=== PATIENT | female | born 1975 | race African-American/Black ===

== ENCOUNTER 2017-07-20 19:56 | Emergency (ER) | payer OTHER ==
[2017-07-20 20:13] VITALS: BMI 28.5
[2017-07-20] MEDS ORDERED: CATAPRES TAB 0.2 MG PO ONE (20:29)
[2017-07-20] MEDS ORDERED: CATAPRES TAB 0.2 MG ONE (20:29)
--- NOTE | 2017-07-20 20:36 | DR.GENAD ---
HPI - PCP Primary Care Physician: FRANCHESKA RODARTE - Complaint/Symptoms Chief Complaint:: MIGRAINE SEVERAL DAYS WITH DIZZYNESS BACK PAIN STARTED TODAY Self Treatment fo Chief Complaint: BUTORPHANOL NOSE SPRAY. FIORICET - Source History Provided: Patient - Mode of Arrival Mode of Arrival: Ambulatory - Timing Onset of Chief Complaint: 07/17/17 PMH - PMH Past Medical History: Yes Past Medical History: Anemia, Anxiety, Asthma, Depression, Migraines, Headaches , Hypertension Past Medical History Comment: BIPOLAR Past Surgical History: Yes Surgical History: COMB FIXER Surgery Past Surgical History Comment: TUBAL LIGATION - Family History History of Family Medical Conditions: Yes Family Medical History: Hypertension - Social History Does patient currently use any type of tobacco product: No Have you used tobacco products in the last 12 months: No Type of Tobacco Use: None Alcohol Use: None Do you use any recreational Drugs:: No Lives With: Family Lives Where: Home - infectious screening In the last 2 months have you had wt loss of >10#?: NO Have you had fever, night sweats or hemotysis?: No Have you traveled outside the country in the last 6 months?: No Isolation: Standard ROS - Review of Systems Eyes: No Symptoms Reported ENTM: No Symptoms Reported Respiratoy: No Symptoms Reported Cardiovascular: No Symptoms Reported Gastrointestinal/Abdominal: No Symptoms Reported Genitourinary: No Symptoms Reported Neurological: No Symptoms Reported Musculoskeletal: No Symptoms Reported Integumentary: No Symptoms Reported Hematologic/Lymphatic: No Symptoms Reported Endocrine: No Symptoms Reported Psychiatric: No Symptoms Reported All Other Systems: Reviewed and Negative PE - Vital Signs Vitals: Temperature 99.2 F Pulse Rate 112 Respiratory Rate 20 Blood Pressure [Left Arm] 137/80 Blood Pressure 226/120 O2 Sat by Pulse Oximetry 100 - General Limitations: No Limitations General Appearance: Alert, In No Apparent Distress - Head Head Exam: Normal Inspection, Atraumatic - Eyes Eye exam: Normal Appearance, PERRL, EOMI - ENT ENT Exam: Normal Exam External Ear Exam: Normal External Inspection TM/Canal Exam: Bilateral Normal Nose Exam: Normal Nose Exam, Sinus Tenderness Mouth Exam: Normal Inspection Throat Exam: Normal Inspection - Neck Neck Exam: Normal Inspection - Chest Chest Inspection: Normal Inspection, Symmetric Chest Wall Rise - Respiratory Respiratory Exam: Normal Lung Sounds Bilat Respiratory Exam: Bilateral Clear to Auscultation - Cardiovascular Cardiovascular Exam: Regular Rate, Normal Rhythm - Abdominal Exam Abdominal Exam: Normal Inspection, Normal Bowel Sounds, Distention Abdominal Tenderness: negative: RUQ, RLQ, LUQ, LLQ, Epigastrium, Suprapubic, Diffuse, Mild, Moderate, Severe, Other - Extremities Extremities Exam: Normal Inspection, Full ROM - Back Back Exam: Normal Inspection, Full ROM - Neurologic Neurological Exam: Alert, Oriented X3, CN II-XII Intact - Psychiatric Psychiatric Exam: Normal Affect - Skin Skin Exam: Warm, Dry, Intact Course - Reevaluation 1st: Improved - Education/Counseling Educated On: Treatment, Diagnosis, Prognosis, Needs for Follow Up - Diagnosis Discharge Problem: Hx of migraine headaches, Uncontrolled hypertension - Discharge Plan Condition: Stable - Follow ups/Referrals Follow ups/Referrals: NFD,None [Primary Care Provider] - 3 days - Instructions
[2017-07-20] MEDS ORDERED: BENADRYL INJ 50 MG VIAL IVP ONE (20:57)
[2017-07-20] MEDS ORDERED: COMPAZINE INJ IVP ONE (20:57)
[2017-07-20] MEDS ORDERED: BENADRYL INJ 50 MG VIAL ONE (21:34)
[2017-07-20] MEDS ORDERED: COMPAZINE INJ ONE (21:35)
[2017-07-20 22:32] VITALS: BP 137/80
== END 2017-07-20 23:16 | disposition home or self-care (01) ==
LOC: ER 20:16
DX: G43.909 Migraine, unspecified, not intractable, without status migrainosus (principal); I10 Essential (primary) hypertension
CPT/HCPCS: 96365; 96374; 96375; 99282; 99283; A4222; J0780; J1200